=== PATIENT | female | born 1950 | race Caucasian/White ===

== ENCOUNTER 2016-10-26 16:48 | Inpatient (IN) | payer MEDICARE, MEDICAID ==
[~2016-10-26] VITALS: Ht 152.4 cm; Wt 62.6 kg
[2016-10-26 17:00] VITALS: BP 158/69
[2016-10-26 18:19] LABS: TROPONIN I < 0.30 ng/mL (<=0.30)
[2016-10-26 18:23] LABS: ALBUMIN/GLOBULIN RATIO 1.2 (1.0-2.7); CALCIUM 10.1 mg/dL (8.6-10.2); POTASSIUM 3.6 mEQ/L (3.4-4.9); TOTAL PROTEIN 6.2 g/dL (6.6-8.7)
[2016-10-26 18:33] LABS: CKMB 2.9 ng/mL (< 3.8)
[2016-10-26 18:39] LABS: BASOPHILS % (AUTO) 1.1 % (0.0-2.0); EOSINOPHILS % (AUTO) 2.8 % (0.0-3.0); LYMPHOCYTES % (AUTO) 47.4 % (20.0-45.0); MEAN CORPUSCULAR HEMOGLOBIN 27.4 PG (27.0-31.0); MEAN CORPUSCULAR HGB CONC 31.4 G/DL (32.0-36.0); MEAN CORPUSCULAR VOLUME 87 FL (80-99); MEAN PLATELET VOLUME 8.1 FL (6.5-10.1); MONOCYTES % (AUTO) 7.5 % (1.0-10.0); NEUTROPHILS % (AUTO) 41.1 % (45.0-75.0); PLATELET COUNT 239 K/UL (150-450); RED BLOOD COUNT 4.73 M/UL (4.20-5.40); WHITE BLOOD COUNT 8.4 K/UL (4.8-10.8)
[2016-10-26 18:51] LABS: PROTHROMBIN TIME 9.7 SEC (9.30-11.50)
[2016-10-26 18:57] LABS: FREE T3 1.7 pg/mL (2.3-4.2); THYROID STIMULATING HORMONE 42.2 uIU/mL (0.300-4.500)
[2016-10-26] MEDS ORDERED: TENORMIN50 MG ORAL (19:50)
[2016-10-26] MEDS ORDERED: LEVOTHYROXINE100 MCG ORAL (19:50)
[2016-10-26] MEDS ORDERED: HYDROCHLOROTHIA25 MG ORAL (19:50)
[2016-10-26 20:33] VITALS: BP 164/71
[2016-10-26 22:05] VITALS: BP 141/62
--- NOTE | 2016-10-26 22:06 | Emergency Room Report ---
History of Present Illness General Chief Complaint: Chest Pain Source: Patient, EMS Present Illness HPI This patient presents from a [place] [facility]. The patient states she has a history of an enlarged heart. She states that she has been getting chest pain or shortness of breath intermittently. She states that she developed that again today. She states she is residing at a [place] [facility] facility because she had been homeless. She denies cough or congestion. She denies fever or chills. She denies abdominal pain. She has no other complaints. Allergies: Coded Allergies: No Known Allergies (Unverified , 10/26/16) Patient History Past Medical History: see triage record, HTN, other - hypothyroid Social History: Denies: alcohol use, drug use, smoking Now: No Reviewed Nursing Documentation: PMH: Agreed, PSxH: Agreed Nursing Documentation-PMH Past Medical History: No History, Except For Hx Hypertension: Yes Review of Systems All Other Systems: negative except mentioned in HPI Physical Exam Vital Signs Date Time Temp Pulse Resp B/P Pulse Ox O2 Delivery O2 Flow Rate FiO2 10/26/16 16:49 98.4 45 14 165/74 98 Room Air Sp02 EP Interpretation: reviewed, normal General Appearance: no apparent distress, alert, GCS 15, non-toxic Head: normocephalic, atraumatic Eyes: bilateral eye PERRL, bilateral eye normal inspection ENT: hearing grossly normal, normal pharynx, no angioedema, normal voice Neck: full range of motion, supple/symm/no masses Respiratory: chest non-tender, lungs clear, normal breath sounds, speaking full sentences Cardiovascular #1: no edema, bradycardia Gastrointestinal: normal bowel sounds, non tender, soft, non-distended, no guarding, no rebound Rectal: deferred Musculoskeletal: back normal, gait/station normal, normal range of motion, non- tender Neurologic: alert, oriented x3, responsive, motor strength/tone normal, sensory intact, speech normal Psychiatric: judgement/insight normal, memory normal, mood/affect normal, no suicidal/homicidal ideation Skin: normal color, no rash, warm/dry, well hydrated Medical Decision Making Diagnostic Impression: Primary Impression: Bradycardia ER Course This patient is found to have profound bradycardia. Her heart rate is in the high 30s. Of note, the patient is on atenolol. This could be medication effect. She does have a history of hypothyroidism and is mildly hypothyroid. Overall, the patient is well appearing. I did discuss the case with the patient 's primary physician at the [place] [facility] and he reports that her heart rate had been in the 50s. Possibly she is over beta blocked. Regardless , the patient will be admitted for further monitoring on telemetry and further evaluation and treatment. Laboratory workup to include CBC, CMP and cardiac enzymes are unremarkable. She is admitted to telemetry. Labs Test 10/26/16 17:38 White Blood Count 8.4 K/UL (4.8-10.8) Red Blood Count 4.73 M/UL (4.20-5.40) Hemoglobin 13.0 G/DL (12.0-16.0) Hematocrit 41.4 % (37.0-47.0) Mean Corpuscular Volume 87 FL (80-99) Mean Corpuscular Hemoglobin 27.4 PG (27.0-31.0) Mean Corpuscular Hemoglobin Concent 31.4 G/DL (32.0-36.0) Red Cell Distribution Width 15.0 % (11.6-14.8) Platelet Count 239 K/UL (150-450) Mean Platelet Volume 8.1 FL (6.5-10.1) Neutrophils (%) (Auto) 41.1 % (45.0-75.0) Lymphocytes (%) (Auto) 47.4 % (20.0-45.0) Monocytes (%) (Auto) 7.5 % (1.0-10.0) Eosinophils (%) (Auto) 2.8 % (0.0-3.0) Basophils (%) (Auto) 1.1 % (0.0-2.0) Prothrombin Time 9.7 SEC (9.30-11.50) Prothromb Time International Ratio 1.0 (0.9-1.1) Activated Partial Thromboplast Time 26 SEC (23-33) Sodium Level 145 mEQ/L (135-145) Potassium Level 3.6 mEQ/L (3.4-4.9) Chloride Level 104 mEQ/L (98-107) Carbon Dioxide Level 31 mEQ/L (20-30) Anion Gap 10 (5-15) Blood Urea Nitrogen 19 mg/dL (7-23) Creatinine 1.0 mg/dL (0.5-0.9) Estimat Glomerular Filtration Rate 56.0 mL/min (>60) Glucose Level 88 mg/dL (74-106) Calcium Level 10.1 mg/dL (8.6-10.2) Total Bilirubin 0.2 mg/dL (0.0-1.2) Aspartate Amino Transf (AST/SGOT) 48 U/L (5-40) Alanine Aminotransferase (ALT/SGPT) 49 U/L (3-33) Alkaline Phosphatase 61 U/L (35-104) Total Creatine Kinase 116 U/L (26-140) Creatine Kinase MB 2.9 ng/mL (< 3.8) Creatine Kinase MB Relative Index 2.5 Troponin I < 0.30 ng/mL (<=0.30) Pro-B-Type Natriuretic Peptide 523 pg/mL (0-125) Total Protein 6.2 g/dL (6.6-8.7) Albumin 3.5 g/dL (3.5-5.2) Globulin 2.7 g/dL Albumin/Globulin Ratio 1.2 (1.0-2.7) Thyroid Stimulating Hormone (TSH) 42.200 uIU/mL (0.300-4.500) Free Thyroxine 1.01 ng/dL (0.86-1.85) Free Triiodothyronine 1.7 pg/mL (2.3-4.2) EKG Diagnostic Results Rate: bradycardiac ST Segments: no acute changes Other Impression Sinus bradycardia Rhythm Strip Diag. Results EP Interpretation: yes Rate: 30's Rhythm: no PVC's, no ectopy Other Impression Sinus bradycardia Chest X-Ray Diagnostic Results EP Interpretation: Yes Findings: no consolidation, no effusion, no pneumothorax, no acute cardiopulmonary disease Number of Views: 1 Last Vital Signs Date Time Temp Pulse Resp B/P Pulse Ox O2 Delivery O2 Flow Rate FiO2 10/26/16 20:33 97.7 38 16 164/71 99 Room Air Disposition: ADMITTED INPATIENT Condition: Serious Referrals: HEVER RANGEL (PCP) VALERIANO BURGOS D.O. Oct 26, 2016 22:06
[2016-10-27 00:20] VITALS: BP 134/61
[2016-10-27] MEDS ORDERED: Ketorolac 30mg Inj IV PRN (01:00)
[2016-10-27] MEDS ORDERED: DuoNeb 0.5-3(2.5)mg/3ml neb HHN PRN (01:00)
[2016-10-27 04:18] VITALS: BP 142/72
[2016-10-27] MEDS: Ketorolac 30mg Inj IV PRN ×2 (06:38→12:57)
[2016-10-27 07:32] LABS: BASOPHILS % (AUTO) 1.1 % (0.0-2.0); EOSINOPHILS % (AUTO) 2.9 % (0.0-3.0); LYMPHOCYTES % (AUTO) 42.7 % (20.0-45.0); MEAN CORPUSCULAR HEMOGLOBIN 28.6 PG (27.0-31.0); MEAN CORPUSCULAR HGB CONC 33.8 G/DL (32.0-36.0); MEAN CORPUSCULAR VOLUME 84 FL (80-99); MEAN PLATELET VOLUME 8.4 FL (6.5-10.1); MONOCYTES % (AUTO) 7.4 % (1.0-10.0); NEUTROPHILS % (AUTO) 45.8 % (45.0-75.0); PLATELET COUNT 244 K/UL (150-450); RED BLOOD COUNT 4.63 M/UL (4.20-5.40); RED CELL DISTRIBUTION WIDTH 14.7 % (11.6-14.8); WHITE BLOOD COUNT 7.3 K/UL (4.8-10.8)
[2016-10-27 07:35] LABS: ALANINE AMINOTRANSFERASE 45 U/L (3-33); ANION GAP 12 (5-15); ASPARTATE AMINO TRANSFERASE 41 U/L (5-40); CALCIUM 9.9 mg/dL (8.6-10.2); CARBON DIOXIDE 29 mEQ/L (20-30); CHLORIDE 106 mEQ/L (98-107); CREATININE 0.9 mg/dL (0.5-0.9); GLOMERULAR FILTRATION RATE > 60 mL/min (>60); HEMOLYSIS 4; POTASSIUM 3.5 mEQ/L (3.4-4.9); SODIUM 147 mEQ/L (135-145)
[2016-10-27 08:00] VITALS: BP 153/72
[2016-10-27] MEDS: Heparin 5000 units/ml inj SUBQ SCH ×3 (09:34→21:36)
--- NOTE | 2016-10-27 11:08 | Diagnostic Imaging Report ---
Indication: Chest Pain Comparison: None A single view chest radiograph was obtained. Findings: No definite infiltrate or pulmonary vascular congestion identified. The heart is enlarged. The aorta is mildly enlarged consistent with atherosclerotic vascular disease. The bones are osteopenic. Impression: No acute disease
[2016-10-27 11:36] LABS: BILIRUBIN,DIRECT 0.1 mg/dL (0.1-0.3); TOTAL PROTEIN 6.4 g/dL (6.6-8.7)
[2016-10-27 12:00] VITALS: BP 177/76
[2016-10-27 16:00] VITALS: BP 111/72
--- NOTE | 2016-10-27 16:47 | History and Physical Report ---
DATE OF ADMISSION: 10/26/2016 CHIEF COMPLAINT: This in History and Physical and first admission to [facility] of this 65-year-old patient because of shortness of breath and bradycardia. HISTORY OF PRESENT ILLNESS: The patient is a resident of an extended care facility where she has been there for the last several days. She is known to have several chronic medical syndrome but has been relatively stable on current medication. Several weeks ago even prior to the admission to the extended care facility, she developed shortness of breath on exertion and bradycardia. Bradycardia was in the low 50s by the time. It is unclear whether the patient saw trophy assembler or not. In any event, the patient was living in a senior care. She was admitted to [facility] and was discharged to the extended care facility. In the extended care facility, she was minimally symptomatic but refused to be seen by a physician. She then later began short of breath and dizzy. She was transferred to [facility] ER and was admitted. PAST MEDICAL HISTORY AND SURGICAL HISTORY: The patient underwent tonsillectomy at the age of 7. She had two sections that she had in the late 80s. Clinically, she is known to have Graves disease and had underwent radioiodine ablation of the thyroid and was placed on levothyroxine. She has been on levothyroxine now for more than 30 years. ALLERGIES: No known drug allergies. MEDICATIONS: The patient is on hydrochlorothiazide 25 mg daily, levothyroxine 100 mcg daily and levothyroxine 75 mcg that she received in the emergency room. She is on albuterol sulfate and ipratropium bromide inhalation therapy. FAMILY HISTORY: Her mother alive and well, 90, hypothyroid, and in good health. Father in his late 50s from carcinoma of the colon. She has one sister in good health. She has two children in good health. SOCIAL HISTORY: She is single. She was born in [place]. She has been unemployed for many years. Prior to the appearance of total disability, she worked in [employer]. 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 REVIEW OF SYSTEMS: Cardiovascular: The patient denied any chest pain, shortness of breath on exertion only. She has no palpitations. She however has dizziness. Pulmonary: The patient denied any cough, wheezing, or expectoration. Gastrointestinal: Her appetite is moderate. Her weight is stable. She has no dysphagia. No dyspepsia. No bowel movement disorder. Genitourinary: The patient denied any dysuria, frequency, incontinence, nocturia is 0 to 2. Joints: The patient denies any swelling, stiffness, cold extremities, photosensitivity, dry eyes, or alopecia. She does complain intermittently of diffuse joint stiffness and pain for which she was taking different analgesic including narcotic analgesics but she has been off narcotic analgesic now for quite a while Central nervous system: Her sleep is of good quality. She has no numbness, tingling, seizure disorder, and has no headache. PHYSICAL EXAMINATION: VITAL SIGNS: Blood pressure is 142/72, pulse 40, respirations 18, and temperature 98.8. HEENT: Eyes were normal. Pupils were round, equal, and reactive to light. Sclerae was white. Conjunctiva was pink. Extraocular movements were normal. Temporal arteries were palpable bilaterally. There was no bilateral temporal wasting. Visual almaguer to confrontation were normal. Neglect sign was negative. ENT, mucous membranes were not dehydrated. Auditory canals were clear and tympanic membranes could not be visualized. Nasal cavity was not congested. Nasal septum was intact. Soft palate was free of ulcerations. Pharynx was clear from exudate or tonsillar hypertrophy. Uvula ethan to phonation. Tongue was moist, midline, and normally papillated. NECK: Supple. There was no goiter. No mass. No lymphadenopathy. There was no jugular venous distention. No bruits. Carotid upstroke was 2+. LUNGS: Clear. HEART: PMI was in the fourth left intercostal space in midclavicular line but difficult to locate. There was soft S1 and soft S2. There was no murmur. Heart rate was above 40. There was no other arrhythmia. She has sinus bradycardia on monitor. ABDOMEN: Soft and nontender without organomegaly. There were no masses palpable. Normal bowel sounds without bruits. There was no guarding. No rebound tenderness. No ascites. No hernia. No CVA tenderness. Liver span was 8 cm, mostly nontender. EXTREMITIES: No cyanosis. No clubbing. No edema. EXTREMITIES: Warm NEUROLOGICAL: Reflexes in biceps, triceps, and brachioradialis were symmetric and equal. Patellar retinaculum symmetric and equal. Plantar were in flexion. Cranial nerves II through XII were symmetric and equal. Cerebellar function, gait, [id number], rapid alternating movements, and Romberg sign were all declined by the patient. There was no tremor. No nystagmus. No extrapyramidal rigidity. Sensory exam to pinprick, cotton touch, position are grossly normal. Motor strength was 5/5 against resistance in upper and lower extremities in proximal and distal muscles. LABORATORY DATA: Hemoglobin is , hematocrit 31.4 with MCV of 87, WBC 8.4, and platelet is 239,000. Her BUN and creatinine is 16 and 0.9 respectively. Her sodium is 147, potassium 3.5, chloride 106, and CO2 is 29. SGOT was 41 and SGPT was 45. Her BNP was 523. Her TSH is 42.5, free T4 is 0.92. Albumin and globulin were normal. Her free T3 was 1.7. Her INR is 1 and PTT is 26. IMPRESSION: The patient has clinically significant bradycardia most probably associated with hypothyroidism, sick sinus syndrome. In addition, the patient has elevated liver function tests and history of drug abuse. PLAN: The patient will be placed on levothyroxine 200 microgram daily. Viral hepatitis serology will be taken. A 2D echo will be requested. Cardiology consult was called to assist in the management of this case. Repeat laboratory tests will be done in the morning. Erwin Wilson M.D. DR: Pantera JOB#: [id number] CC:
[2016-10-27 20:00] VITALS: BP 133/60
[2016-10-27] MEDS: Nuedexta Capsule 20/10mg ORAL SCH ×2 (21:00→21:37)
[2016-10-28] VITALS: BP 123/65
[2016-10-28 04:00] VITALS: BP 112/70
[2016-10-28 07:57] LABS: BASOPHILS % (AUTO) 1.4 % (0.0-2.0); EOSINOPHILS % (AUTO) 3.1 % (0.0-3.0); LYMPHOCYTES % (AUTO) 35.9 % (20.0-45.0); MEAN CORPUSCULAR HEMOGLOBIN 27.8 PG (27.0-31.0); MEAN CORPUSCULAR VOLUME 87 FL (80-99); MONOCYTES % (AUTO) 5.9 % (1.0-10.0); NEUTROPHILS % (AUTO) 53.8 % (45.0-75.0); PLATELET COUNT 261 K/UL (150-450); RED CELL DISTRIBUTION WIDTH 14.4 % (11.6-14.8); WHITE BLOOD COUNT 8.7 K/UL (4.8-10.8)
[2016-10-28 08:15] VITALS: BP 153/71
[2016-10-28] MEDS: Nuedexta Capsule 20/10mg ORAL SCH ×3 (09:32→21:48)
[2016-10-28] MEDS: Heparin 5000 units/ml inj SUBQ SCH ×2 (09:33→21:50)
[2016-10-28 12:14] VITALS: BP 140/74
[2016-10-28] MEDS: Ketorolac 30mg Inj IV PRN (13:27)
[2016-10-28 16:00] VITALS: BP 160/70
[2016-10-28 20:00] VITALS: BP 137/67
[2016-10-29] VITALS (7 sets, daily range): BP systolic 108–166; BP diastolic 58–82
[2016-10-29 08:07] LABS: BASOPHILS % (AUTO) 0.4 % (0.0-2.0); EOSINOPHILS % (AUTO) 1.2 % (0.0-3.0); LYMPHOCYTES % (AUTO) 13.9 % (20.0-45.0); MEAN CORPUSCULAR HEMOGLOBIN 27.8 PG (27.0-31.0); MEAN CORPUSCULAR HGB CONC 31.9 G/DL (32.0-36.0); MEAN CORPUSCULAR VOLUME 87 FL (80-99); MEAN PLATELET VOLUME 7.9 FL (6.5-10.1); MONOCYTES % (AUTO) 4.8 % (1.0-10.0); NEUTROPHILS % (AUTO) 79.7 % (45.0-75.0); PLATELET COUNT 240 K/UL (150-450); RED BLOOD COUNT 4.89 M/UL (4.20-5.40); WHITE BLOOD COUNT 14.3 K/UL (4.8-10.8)
[2016-10-29 08:29] LABS: ANION GAP 15 (5-15); CALCIUM 9.7 mg/dL (8.6-10.2); CARBON DIOXIDE 27 mEQ/L (20-30); CHLORIDE 100 mEQ/L (98-107); CREATININE 0.9 mg/dL (0.5-0.9); GLOMERULAR FILTRATION RATE > 60 mL/min (>60); HEMOLYSIS 4; POTASSIUM 3.2 mEQ/L (3.4-4.9); SODIUM 142 mEQ/L (135-145)
[2016-10-29 08:47] LABS: TROPONIN I < 0.30 ng/mL (<=0.30)
[2016-10-29] MEDS: Nuedexta Capsule 20/10mg ORAL SCH ×2 (09:50→20:52)
[2016-10-29] MEDS: Heparin 5000 units/ml inj SUBQ SCH ×2 (09:52→20:53)
--- NOTE | 2016-10-29 10:47 | Progress Note ---
DATE: 10/28/2016 SUBJECTIVE: The patient's heart rate increased to about 50 until this afternoon. yesterday, she received 175 mcg of levothyroxine. She remained asymptomatic with associated symptom similar to symptom . PHYSICAL EXAMINATION: VITAL SIGNS: Blood pressure 137/67, pulse is 53, respirations of 20, and temperature of 98.1 degrees. HEENT: Eyes were normal. ENT, mucous membranes were moist and intact. NECK: Supple with no JVD without lymph nodes. LUNGS: Clear. HEART: Normal sounds with regular beat. ABDOMEN: Soft and nontender with normal bowel sounds. EXTREMITIES: Warm without cyanosis, clubbing, or edema. The patient was admitted here in the past with a similar episode of bradycardia when she was not compliant with her medication for thyroid replacement. Similarly, which the patient had towards blood pressure medication . Chest x-ray revealed mild enlarged cardiomegaly. LABORATORY DATA: Hemoglobin is 13.6, hematocrit 42.7 with MCV of 87, WBC of 8.7, and platelets are 261,000. Her BUN and creatinine is 16 and 0.9 respectively. Her sodium is 147, potassium 3.5, chloride 106, and CO2 is 29. SGOT and SGPT is 43 and 45. Her albumin is 3.7. Total protein is 6.4. PLAN: Repeat laboratory tests will be done in the morning. Erwin Wilson M.D. DR: RUDI JOB#: [id number] CC:
[2016-10-29] MEDS ORDERED: Lisinopril 20mg tab ORAL ONE (13:30)
[2016-10-30 00:19] LABS: CALCIUM 9.5 mg/dL (8.6-10.2); POTASSIUM 3.2 mEQ/L (3.4-4.9)
[2016-10-30 00:37] VITALS: BP_SYST 127; BP_SYST 185; BP_DIAS 51; BP_DIAS 85
[2016-10-30 04:13] VITALS: BP 123/78
[2016-10-30 08:08] VITALS: BP 118/56
[2016-10-30] MEDS: Heparin 5000 units/ml inj SUBQ SCH ×2 (09:00→21:32)
[2016-10-30] MEDS ORDERED: Levofloxacin 500mg tab ORAL ONE (09:00)
[2016-10-30 09:29] LABS: MEAN CORPUSCULAR HEMOGLOBIN 27.5 PG (27.0-31.0); MEAN CORPUSCULAR HGB CONC 31.5 G/DL (32.0-36.0); MEAN CORPUSCULAR VOLUME 87 FL (80-99); PLATELET COUNT 197 K/UL (150-450); RED CELL DISTRIBUTION WIDTH 14.7 % (11.6-14.8); WHITE BLOOD COUNT 7.7 K/UL (4.8-10.8)
[2016-10-30] MEDS: Nuedexta Capsule 20/10mg ORAL SCH ×2 (09:34→21:32)
[2016-10-30 11:29] LABS: ANISOCYTOSIS 1+; BAND NEUTROPHILS % (MANUAL) 1 % (0-8); BASOPHILS % (MANUAL) 0 % (0-2); EOSINOPHILS % (MANUAL) 0 % (0-3); HYPOCHROMASIA 1+; LYMPHOCYTES % (MANUAL) 10 % (20-45); NEUTROPHILS % (MANUAL) 85 % (45-75); PLATELET ESTIMATE ADEQUATE; PLATELET MORPHOLOGY NORMAL; TOTAL CELLS COUNTED 100
[2016-10-30 11:57] VITALS: BP 126/66
[2016-10-30] MEDS: Ketorolac 30mg Inj IV PRN (14:40)
[2016-10-30 16:00] VITALS: BP 123/40
--- NOTE | 2016-10-30 18:03 | Cardiology Report ---
APPROVED REPORT EKG Measurement Heart [id number] CO [id number] Marked sinus bradycardia with 1st degree AV block Nonspecific ST and T wave abnormality Abnormal ECG
--- NOTE | 2016-10-30 18:05 | Cardiology Report ---
APPROVED REPORT EKG Measurement Heart [id number] AL [id number] Marked sinus bradycardia with 1st degree AV block Left axis deviation Nonspecific ST and T wave abnormality Abnormal ECG
[2016-10-30 19:08] LABS: ABG BASE EXCESS 2.6; ABG PCO2 36.3 mmHg (35.0-45.0)
[2016-10-30 20:00] VITALS: BP 121/67
[2016-10-31 00:14] VITALS: BP 133/64
--- NOTE | 2016-10-31 00:48 | Progress Note ---
DATE: 10/30/2016 SUBJECTIVE: The patient is awake alert, afebrile, hemodynamically stable. She has ambulated around the bed without difficulties. Her heart rate now between 50 to 60. PHYSICAL EXAMINATION: VITAL SIGNS: Blood pressure is 123/40, pulse 52, respirations 18, temperature was 97.7. HEENT: Eyes were normal. ENT, mucous membranes were moist and intact. NECK: Supple with no JVD without lymph nodes. LUNGS: Clear. HEART: sinus bradycardia on the monitor. Heart rate on monitor 64 ABDOMEN: Soft and nontender with normal bowel sounds. . EXTREMITIES: Warm without cyanosis, clubbing, or edema. LABORATORY DATA: Hemoglobin is 12.9, hematocrit 41.9 with MCV of 87, WBC of 7.7, and platelet 197,000. Her BUN and creatinine is 22 and 1.0 respectively. Her sodium is 137, potassium 3.2, chloride 97, CO2 26, and glucose 106. Last TSH was 12.6. IMPRESSION: The patient appeared to be improving on the current medication. However she is still short of breath at rest which cannot be explained by PLAN: The patient will undergo assessment by credit operations processor and warehouse incentive selector. Troponin, BNP, and arterial blood gasses will be taken, if these are all normal can be discharged back on current medication to [facility]. Erwin Wilson M.D. DR: Pantera JOB#: [id number] CC:
[2016-10-31 04:11] VITALS: BP 135/67
[2016-10-31 07:36] LABS: BASOPHILS % (AUTO) 0.7 % (0.0-2.0); EOSINOPHILS % (AUTO) 0.8 % (0.0-3.0); MEAN CORPUSCULAR HEMOGLOBIN 27.5 PG (27.0-31.0); MEAN CORPUSCULAR HGB CONC 31.5 G/DL (32.0-36.0); MEAN CORPUSCULAR VOLUME 87 FL (80-99); MEAN PLATELET VOLUME 7.7 FL (6.5-10.1); NEUTROPHILS % (AUTO) 69.5 % (45.0-75.0); PLATELET COUNT 169 K/UL (150-450); RED BLOOD COUNT 4.43 M/UL (4.20-5.40); RED CELL DISTRIBUTION WIDTH 15.1 % (11.6-14.8); WHITE BLOOD COUNT 5.4 K/UL (4.8-10.8)
[2016-10-31 08:00] VITALS: BP 117/82
[2016-10-31 08:04] LABS: CALCIUM 9.8 mg/dL (8.6-10.2); CREATININE 1.2 mg/dL (0.5-0.9); GLOMERULAR FILTRATION RATE 45.3 mL/min (>60); POTASSIUM 3.2 mEQ/L (3.4-4.9)
[2016-10-31 08:23] LABS: THYROID STIMULATING HORMONE 8.13 uIU/mL (0.300-4.500)
[2016-10-31] MEDS: Nuedexta Capsule 20/10mg ORAL SCH ×2 (08:42→22:35)
[2016-10-31] MEDS: Heparin 5000 units/ml inj SUBQ SCH ×3 (08:44→22:45)
[2016-10-31 09:00] LABS: TROPONIN I < 0.30 ng/mL (<=0.30)
[2016-10-31 12:00] VITALS: BP 125/68
[2016-10-31 16:00] VITALS: BP 125/54
[2016-10-31] MEDS: Ketorolac 30mg Inj IV PRN (17:09)
[2016-10-31 20:00] VITALS: BP 118/52
[2016-10-31] MEDS ORDERED: KCl 10% 20 mEq/15ml liquid ORAL ONE (23:30)
[2016-11-01 00:14] VITALS: BP 130/65
[2016-11-01 02:17] LABS: APPEARANCE,URINE CLEAR; KETONES,URINE NEGATIVE (NEGATIVE); LEUKOCYTE ESTERASE ,URINE 2+ (NEGATIVE); NITRITE,URINE NEGATIVE (NEGATIVE); PH,URINE 5 (4.5-8.0); PROTEIN,URINE 1+ (NEGATIVE); UROBILINOGEN,URINE NORMAL MG/DL (0.0-1.0)
[2016-11-01 02:45] LABS: BACTERIA,URINE FEW /HPF; HYALINE CASTS, URINE 0-2 /LPF; SQUAMOUS EPITHELIAL CELL,UR FEW /LPF (NONE/OCC)
--- NOTE | 2016-11-01 02:57 | Progress Note ---
DATE: 10/31/2016 SUBJECTIVE: The patient's heart rate varies between 68 and 47. Seizure disorder was , however, she said she . PHYSICAL EXAMINATION: VITAL SIGNS: Blood pressure 125/54, pulse is 46, respirations are 18, and temperature 97.5 degrees. HEENT: Eyes were normal. ENT, mucous membranes were moist and intact. NECK: Supple with no JVD. LUNGS: Clear. HEART: Normal sounds with regular beats. There are no S3, S4, or pericardial rub. ABDOMEN: Soft and nontender with normal bowel sounds. EXTREMITIES: Warm without cyanosis, clubbing, or edema. LABORATORY DATA: Arterial blood gases on pH is 7.47, pCO2 is 36, pO2 is 96, bicarb is 26, and O2 saturation 97. Hemoglobin is 12.2, hematocrit 38.8 with MCV of 87, WBC of 5.4, and platelet 169,000. BUN and creatinine is 30 and 1.2 respectively. Sodium is 141, potassium 3.2, chloride 100, and CO2 was 31. Her proBNP declined to 507 to 293 and TSH declined from 12.6 to 8.1. The patient blood gases are normal. Troponin is persistently negative. ProBNP . IMPRESSION: 1. congestive heart failure and . 2. Hypothyroidism as well as bradycardia. Her thyroid functions are improving. She is currently on enalapril 20 mg q.12 h., hydrochlorothiazide daily, 175 mcg of levothyroxine daily. The patient take 10 mg b.i.d., this will be increased to 20 mg b.i.d. even though 30 mg daily will be added to the regimen. Repeat laboratory tests will be done in the morning. to assist in the management of this case. Erwin Wilson M.D. DR: Reid JOB#: [id number] CC:
[2016-11-01 04:17] VITALS: BP 136/58
--- NOTE | 2016-11-01 04:28 | Consultation ---
DATE OF CONSULTATION: 10/31/2016 CARDIOLOGY CONSULTATION: REQUESTING PHYSICIAN: Erwin Wilson M.D. REASON FOR CONSULTATION: Bradycardia and shortness of breath. HISTORY OF PRESENT ILLNESS: This is a 65-year-old white female, she was admitted to the hospital several days ago with shortness of breath. She was also noted to be significantly bradycardic. I have reviewed her admission electrocardiogram and subsequent EKG on the second hospital day revealing a junctional bradycardia in the 40s. The patient has been on a monitoring and evaluation advisor. She continues to have episodes of sinus bradycardia although no current signs of junctional rhythm. Her heart rates have improved overall. The patient was noted to have TSH elevated to the range of 12 as well on admission and has been on thyroid replacement. PAST MEDICAL HISTORY: Includes Graves disease, status post iodine 131 ablation, hypertension. ALLERGIES: None. SOCIAL HISTORY: She has been in a halfway for short time. She does not smoke or use alcohol. She had been on amphetamines for prolonged period and has not used that drugs for the last few months. FAMILY HISTORY: Notable for colon cancer in her father. REVIEW OF SYSTEMS: There is no history of rheumatic heart disease, loss of consciousness, syncope, or myocardial infarction. She does have shortness of breath at rest and with exertion. There is no history of leg pains or blood clotting. PHYSICAL EXAMINATION: VITAL SIGNS: Blood pressure 125/54, heart rate 47, respiratory 18, and afebrile. NECK: Supple. LUNGS: Clear. CARDIAC: Regular slow rate. Normal S1, S2. ABDOMEN: Soft. No edema. LABORATORY AND DIAGNOSTIC DATA: Echocardiogram with normal ejection fraction and no significant valve disease. White count 5.4 and hemoglobin 12.2. Pro natriuretic peptide is 293. Potassium 3.2. IMPRESSION: 1. Dat arrhythmias. 2. Hypothyroidism. 3. History of Graves disease. 4. Hypertension . PLAN: and echocardiogram to assess for coronary insufficiency as well as adequate chronotropic competence. Continue thyroid replacement. Replace potassium. Check magnesium. No emergent indication for pacemaker at this time as the patient appears to be asymptomatic although this will be confirm stress test capacity. Dago Aaron M.D. DR: Patricia JOB#: [id number] CC:
[2016-11-01 08:00] VITALS: BP 123/48
[2016-11-01] MEDS: Nuedexta Capsule 20/10mg ORAL SCH (08:48)
[2016-11-01] MEDS: Heparin 5000 units/ml inj SUBQ SCH (08:50)
[2016-11-01 11:27] LABS: ALBUMIN/GLOBULIN RATIO 1.3 (1.0-2.7); CALCIUM 10.1 mg/dL (8.6-10.2); CREATININE 1.1 mg/dL (0.5-0.9); GLOMERULAR FILTRATION RATE 50.2 mL/min (>60); POTASSIUM 4.1 mEQ/L (3.4-4.9); TOTAL PROTEIN 5.7 g/dL (6.6-8.7)
[2016-11-01 11:38] LABS: THYROID STIMULATING HORMONE 6.81 uIU/mL (0.300-4.500)
[2016-11-01 12:00] VITALS: BP 118/64
[2016-11-01] MEDS ORDERED: Metoprolol 5mg/5ml Inj IVP ONE (14:30)
[2016-11-01 16:00] VITALS: BP 145/73
[2016-11-01 20:00] VITALS: BP 141/55
--- NOTE | 2016-11-02 05:38 | Progress Note ---
DATE: 11/01/2016 CARDIOLOGY PROGRESS NOTE: SUBJECTIVE: The patient with no new complaints. Monitored rhythm, sinus. No episodes of bradycardia. OBJECTIVE: VITAL SIGNS: Blood pressure 118/64, heart rate 44, respiratory rate 18, and afebrile. NECK: Supple. LUNGS: Clear. CARDIAC: Regular. Normal S1 and S2. ABDOMEN: Soft. EXTREMITIES: No edema. LABORATORY DATA: BUN 30 and creatinine 1.1. Pro-natriuretic peptide 289. Albumin 3.3. Urinalysis shows 10 to 15 white cells. Dobutamine echo revealed no ischemia based on wall motion studies and normal ejection fraction. Heart rate increased from 45 to 117, which is 75% of maximum predicted heart rate. IMPRESSION: 1. Clinically insignificant bradyarrhythmia at this time. No emergent indication for permanent pacemaker at this time. No clinical signs of acute congestive heart failure. 2. Mild protein-calorie malnutrition. 3. Urinary tract infection. 4. Hypothyroid state, improving PLAN: Stable for outpatient followup from cardiovascular standpoint on current medication regimen. Will need close monitoring of endocrine parameters. Dago Aaron M.D. DR: AMINATA JOB#: [id number] CC: KEYA
--- NOTE | 2016-11-02 10:46 | Discharge Summary ---
Discharge Summary Hospital Course Date of Admission Oct 26, 2016 at 20:28 Date of Discharge Nov 01, 2016 at 22:15 Admitting Diagnosis Symptomatic Bradycardia HPI Carline Rueda is a 65 year old female who was admitted on Oct 26, 2016 at 20: 28 for Symptomatic Bradycardia Hospital Course [id number] Discharge Discharge Disposition Patient was discharged to SNF/Subacute Facility(03) Discharge Diagnoses: Bryanna Marks NP Nov 02, 2016 10:46
--- NOTE | 2016-11-03 00:17 | Discharge Summary 2 SIG ---
DATE OF ADMISSION: 10/26/2016 DATE OF DISCHARGE: 11/01/2016 VENEER GRADER: Dago Aaron M.D. BRIEF HOSPITAL COURSE: The patient is a 65-year-old, who was brought in because of shortness of breath and bradycardia. She is a resident of an [facility] care facility where she has been there for last several days and was noted to have several chronic medical condition and has been relatively stable on current medications. Several weeks ago, prior to admission, she developed shortness of breath on exertion and bradycardia at low 50s. At [facility], she was minimally symptomatic, but refused to be seen by a physician. She then later began short of breath and felt dizzy and was transferred to [facility] and was admitted. She has a history of Graves disease and underwent radioiodine ablation of the thyroid and was placed on levothyroxine. She was admitted to telemetry. Dr. Aaron was consulted. EKG on second hospital day revealed junctional bradycardia in the 40s. She has been on the cafeteria monitor and continued to have episodes of sinus bradycardia, however, no repeated sign of junctional rhythm. There was no emergent indication for a pacemaker at this time and patient appears to be asymptomatic. Thyroid function was monitored. Dobutamine echocardiogram revealed no ischemia based on wall motion studies and normal ejection fraction. Heart rate increased from 45 to 117, which is 75% of maximum predicted heart rate. She was cleared for discharge and the patient went back to the retirement. FINAL DIAGNOSES: 1. Clinically significant bradyarrhythmia. 2. Mild protein-calorie malnutrition. 3. Urinary tract infection. 4. Chronic diastolic congestive heart failure with no clinical signs of acute congestive heart failure. 5. Hypothyroidism. 6. Hypertension. 7. History of Graves disease. Erwin Wilson M.D. I have been assigned to dictate discharge summary on this account and I was not involved in the patient's management. Bryanna Marks N.P. DR: CANDIE JOB#: [id number] CC: KEYA
[2016-11-05 10:46] LABS: HEPATITIS C VIRUS AB/CEDARS 0.14 S/CO (<0.80)
--- NOTE | 2016-11-06 11:55 | Cardiology Report ---
APPROVED REPORT EXAM: Two-dimensional and M-mode echocardiogram with Doppler and color Doppler. INDICATION Chest Pain M-Mode DIMENSIONS IVSd1.5 (0.7-1.1cm)Left Atrium (MM)3.0 (1.6-4.0cm) LVDd4.6 (3.5-5.6cm)Aortic Root3.2 (2.0-3.7cm) PWd.8 (0.7-1.1cm)Aortic Cusp Exc.1.3 (1.5-2.0cm) LVDs3.2 (2.5-4.0cm) PWs1.3 cm Technically difficult study with poor apical acoustic window Grossly normal left ventricular chamber size, systolic function and wall motion. Left ventricular ejection fraction estimated to be at least 50% Mild left ventricular hypertrophy. No evidence of pericardial effusion. All other cardiac chamber sizes are within normal limits. Mild focal aortic valve sclerosis with adequate cusp excursion Mildly thickened mitral valve leaflets with normal excursion. Mild mtral annulus and aortic root calcification. Pulmonic valve not well visualized. Normal tricuspid valve structure. IVC measured at 1.9cm with physiologic collapse. A color flow and spectral Doppler study was performed and revealed: Trace aortic regurgitation. Trace mitral regurgitation. Mitral inflow indicate normal left ventricular diastolic function. Trace tricuspid regurgitation. Tricuspid systolic velocities suggests peak right ventricular systolic pressure of 15mmHg.
--- NOTE | 2016-11-06 16:09 | Diagnostic Imaging Report ---
APPROVED REPORT CPT Code: 80532 Present Symptoms Lower Extremity Pain: Bilateral Shortness of breath BILATERAL: Imaging reveals a patent deep venous system bilaterally. There is no evidence of thrombus within the femoral, popliteal or tibial segments. The greater saphenous veins are also within normal limits. Doppler indicates normal spontaneous flow within these segments.
== END 2016-11-01 22:15 | DRG 309 ==
LOC: EDBD 16:48 → EMR 17:24 → 2E 20:28 → EDBEDREQ 20:35
DX: R00.1 Bradycardia, unspecified (principal); N39.0 Urinary tract infection, site not specified; I11.0 Hypertensive heart disease with heart failure; I50.32 Chronic diastolic (congestive) heart failure; E44.1 Mild protein-calorie malnutrition; E05.00 Thyrotoxicosis with diffuse goiter without thyrotoxic crisis or storm; Z68.27 Body mass index [BMI] 27.0-27.9, adult
CPT/HCPCS: 36415; 36600; 71010; 80048; 80053; 80076; 81001; 82550; 82553; 83735; 83880; 84439; 84443; 84450; 84460; 84481; 84484; 85007; 85025; 85610; 85730; 86706; 86803; 87081; 87086; 93005; 93017; 93306; 93350; 93970; 94664; 94760; J7620; J8499